=== PATIENT | male | born 1995 | race Caucasian/White ===

== ENCOUNTER 2016-06-03 16:16 | Emergency (ER) | payer MEDICAID ==
[2016-06-03] MEDS ORDERED: IOPAMIDOL 300 (61%) 150 ML VIAL IV ONE (16:17)
[2016-06-03] MEDS ORDERED: ONDANSETRON 4 MG/2ML 2 ML VIAL ONE (17:04)
[2016-06-03] MEDS ORDERED: NALBUPHINE HCL 10 MG/ML AMP ONE ×2 (17:04→17:49)
[2016-06-03 17:31] LABS: ABSOLUTE NEUTROPHIL COUNT 14.1 K/mm3 (1.8-7.7); BASO % 0.3 % (0.2-1.0); HEMATOCRIT 40.8 % (32.0-52.0); HEMOGLOBIN 13.6 gm/l (14.0-18.0); IMM NEUT # 0.1 K/mm3 (0-0.2); IMM NEUT% 0.4 % (0-1); LYMPH # 0.9 (1.0-4.8); LYMPH % 5.6 % (15-45); MEAN CELL VOLUME 83.3 fl (80.0-94.0); MEAN CORPUSCULAR HEMOGLOBIN 27.8 pg (27.0-31.0); MEAN CORPUSCULAR HGB CONC 33.3 g/dl (33.0-37.0); MEAN PLATELET VOLUME 9.8 fl (7.4-10.4); MONO # 0.8 (0.0-0.8); MONO % 5.1 % (4-12); NEUT % 88.6 % (43-75); PLATELET COUNT 345 K/mm3 (130-400); RED CELL DISTRIBUTION WIDTH 12.7 % (11.5-14.5)
[2016-06-03 17:44] LABS: ALB/GLOB RATIO 1.4 (>1.0); ALBUMIN 4.4 gm/dL (3.5-5.7); ALT/SGPT 15 U/L (7-52); BLOOD UREA NITROGEN 13 mg/dL (7-25); BUN/CREATININE RATIO 11 (6-20); CALCIUM 9.8 mg/dL (8.6-10.3)
--- NOTE | 2016-06-03 18:06 | CT ---
Name: WENDY ALSTON Exam: CT abdomen pelvis with contrast Comparison: None History: Trauma Procedure: Helical CT using multidetector technique was applied to the abdomen and pelvis during intravenous administration of 125 cc Isovue-300. No oral contrast was given per ordering physician. An automated dose reduction technique was used to minimize patient radiation dose. Findings: CT abdomen (contrast enhanced): There is small amount of air in the posterior mediastinum outlining the distal esophagus. Obvious pneumothorax is not appreciated. The liver, gallbladder, pancreas, adrenal glands, right kidney, aorta, IVC and portal vein are within normal limits. There is a small area of decreased attenuation in the anterior margin of the left kidney compatible with small laceration. There is marked heterogeneity of the posterior aspect and the anterior tip of the normal sized spleen. There is a moderate amount of surrounding blood. At the anterior superior margin of this fluid, high density material is present compatible with active extravasation/bleeding. Aorta, IVC and portal vein are normal. Stomach, small bowel and colon are within normal limits. Hemorrhage is noted within the paracolic gutters. There is no free intraperitoneal air. Regional skeleton is unremarkable. CT pelvis (contrast enhanced): Bladder is nearly empty. Prostate and seminal vesicles are normal. Small bowel colon and appendix are normal. There is a fairly large amount of free fluid which given the findings and abdomen represent blood. Regional skeleton is intact. Impression: 1. Splenic laceration with active bleeding/extravasation. 2. Small area of decreased attenuation in the anterior margin of the upper pole left kidney. Given the findings of the adjacent spleen, small renal laceration is favored 3. Moderately large hemoperitoneum 4. Small amount of air surrounding the distal esophagus and the posterior mediastinum. Pneumomediastinum is favored. CT chest should be performed. 5. No acute bony abnormality Note: Critical results were discussed with Dr. Allan at 1750 hours
--- NOTE | 2016-06-03 21:04 | CONS ---
WENDY ALSTON [id number] DATE OF SERVICE: 06/03/2016 This is an emergency room consult requested by Dr. Bakari Ogden, emergency room physician. HISTORY OF PRESENT ILLNESS: I was asked to see Mr. Alston who is a 20-year-old male involved in a snowboarding accident earlier today. He was snowboarding on [address] [place] [address]. He had two falls early in the morning between 10:00 A.M. to 12:00 P.M. He initially was doing well after the falls, but started to develop abdominal pain. [place] then left the mountain, was driven home by a friend and was doing reasonably well, but over the last hour to one and a half hours he developed increasing abdominal pain which brought him to the [facility]. Mr. Alston is a relatively healthy 20-year-old. He has a diagnosis of ulcerative colitis, which led to his discharge from the . He has not had ongoing treatment, does not take medications for ulcerative colitis, and states that he has infrequent liquid bowel movements. His mother also states that he had issues with prematurity and may have in fact had a pneumothorax, as well as a meconium ileus and RSV infections early on in his childhood. Mr. Alston is in the emergency department. He is stable in the emergency room, with a blood pressure of 117/70. He is slightly tachycardiac at 105. He has two large-bore IVs. He will receive volume resuscitation. He does relate shortness of breath due to pain on inspiration centered in his left upper quadrant, as well as a Kehr's sign from diaphragmatic irritation, with referred shoulder tip pain. His abdomen is soft. He does voluntary guard. He does not have evidence of peritonitis and his abdomen is not distended. He states that it is similar to his pre-fall condition. Laboratory values are currently pending. Mr. Alston underwent a CAT scan which reveals a number of injuries. He has a lacerated spleen, Grade-4, with a laceration on the lateral border on the inferior pole. He also has a laceration on the superior tip of the spleen, with an associated hypervascular region representing blush and ongoing hemorrhage. He has blood surrounding the spleen, as well as along the right paracolic gutter in the region of the liver, as well as blood into the pelvis above the bladder and within the loops of small bowel. He also is noted to have a small Grade-1 laceration on the left kidney and the radiologist commented on the possibility of a small air collection in the mediastinum, representing possible pneumomediastinum. I am unsure if this is a real finding related to the trauma or in fact this may be related to his previous respiratory issues as a child. SUMMARY OF INJURIES: 1. Grade-4 splenic laceration, with extravasation of contrast. 2. Grade-1 left kidney laceration. 3. Possible pneumomediastinum. ASSESSMENT: Mr. Alston is a 20-year-old gentleman with a splenic laceration with ongoing extravasation. He is currently stable. The emergency physician has arranged for transportation to the regional trauma center at [facility] after discussing with the trauma surgeon. I think this is a reasonable referral to the trauma center due to his ongoing extravasation of contrast at the superior tip of the spleen. He is currently stable and does not require urgent laparotomy for a splenectomy at this point. He will need close observation and potentially interventional radiology treatment of this splenic laceration or trauma laparotomy with splenectomy if he is to deteriorate.
== END 2016-06-03 18:58 | disposition short-term general hospital (02) ==
LOC: ED 16:16
DX: S36.09XA Other injury of spleen, initial encounter (principal); S37.039A Laceration of unspecified kidney, unspecified degree, initial encounter; J98.2 Interstitial emphysema; V00.311A Fall from snowboard, initial encounter; Y93.23 Activity, snow (alpine) (downhill) skiing, snowboarding, sledding, tobogganing and snow tubing; Y92.39 Other specified sports and athletic area as the place of occurrence of the external cause; Y99.8 Other external cause status
CPT/HCPCS: 85025; 80053; 74177; 96375; 96376; 99284; 96374; 99285; J2300 ×2; J2405; Q9967